=== PATIENT | female | born 1985 | race Asian ===

== ENCOUNTER → 2019-12-16 | Outpatient (CLI) | payer OTHER ==
[2019-12-16 12:58] LABS: PLATELET COUNT 323 x10^3mcL (130-400); RED CELL DISTRIBUTION WIDTH 12.2 % (11.5-14.5)
[2019-12-16 13:06] LABS: ALBUMIN 4.3 g/dL (3.4-5.0); CREATININE SERUM 0.8 mg/dL (0.6-1.0); GFR1 > 60 mL/min
[2019-12-16 13:33] LABS: CHLORIDE SERUM 105 mmol/L (98-107); FREE T4 1.08 ng/dL (0.76-1.46); GLUCOSE SERUM 88 mg/dL (74-106); HDL CHOLESTEROL 46 mg/dL (40-60); SODIUM SERUM 141 mmol/L (136-145); TRIGLYCERIDES 168 mg/dL (<150)
[2019-12-16 13:35] LABS: ALKALINE PHOSPHATASE 74 U/L (46-116); ALT/SGPT 62 U/L (14-59); AST/SGOT 25 U/L (15-37); BILIRUBIN TOTAL 0.56 mg/dL (0.20-1.00); CALCIUM 9.1 mg/dL (8.5-10.1); CARBON DIOXIDE 25.7 mmol/L (21-32); CHOLESTEROL 177 mg/dL (<200); CHOLESTEROL/HDL RATIO 3.8
[2019-12-16 13:39] LABS: TOTAL PROTEIN, SERUM 8.3 g/dL (6.4-8.2)
== END | disposition home or self-care (01) ==
LOC: LB 12:27
PROVIDERS: Family Medicine
DX: Z76.89 Persons encountering health services in other specified circumstances (principal)
CPT/HCPCS: 84439